=== PATIENT | female | born 1985 | race Caucasian/White ===

== ENCOUNTER 2019-04-09 22:04 | Emergency (ER) | payer OTHER ==
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
[2019-04-09 22:12] VITALS: O2SAT 98
[2019-04-09] MEDS: XYLOCAINE 1%/Epi 1:100000 MDV 20 ML IJ ONE (22:29)
[2019-04-09] MEDS ORDERED: Norco 10/325 MG Tablet ONE (22:30)
[2019-04-09] MEDS ORDERED: TENIVAC VIAL IM ONE (22:30)
[2019-04-09] MEDS ORDERED: XYLOCAINE 1%/Epi 1:100000 MDV 20 ML ONE (22:30)
[2019-04-09] MEDS: TENIVAC VIAL IM ONE (22:31)
[2019-04-09] MEDS: Norco 10/325 MG Tablet PO ONE (22:32)
[2019-04-10 00:02] VITALS: BP 110/78; PULSE 98
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
== END 2019-04-10 00:01 | disposition home or self-care (01) ==
LOC: ED 22:04
DX: S01.81XA Laceration without foreign body of other part of head, initial encounter (principal); S00.83XA Contusion of other part of head, initial encounter; Y04.0XXA Assault by unarmed brawl or fight, initial encounter
CPT/HCPCS: 12013; 70450; 70486; 71046; 72125; 90471; 90714; 99284; A9270-GY

== ENCOUNTER 2019-04-20 11:13 | Emergency (ER) | payer OTHER ==
--- NOTE | 2019-04-20 11:24 | ERPHSYRPT ---
- History of Present Illness Time Seen by Provider: 04/20/19 11:22 Source: patient Exam Limitations: no limitations Physician History: came for suture removal on face Allergies/Adverse Reactions: No Known Drug Allergies Allergy (Verified 04/20/19 11:18) Home Medications: Prazosin HCl [Minipress] 2 mg PO HS 04/09/19 [History] Sertraline HCl 50 mg [Zoloft 50 mg Tablet] 50 mg PO DAILY 04/09/19 [History] Sertraline HCl [Zoloft] 100 mg PO DAILY 04/09/19 [History] Hx Tetanus, Diphtheria Vaccination/Date Given: Yes Hx Influenza Vaccination/Date Given: No Hx Pneumococcal Vaccination/Date Given: No - Review of Systems Constitutional: No Symptoms Eyes: No Symptoms Ears, Nose, & Throat: No Symptoms Respiratory: No Symptoms Cardiac: No Symptoms Abdominal/Gastrointestinal: No Symptoms Genitourinary Symptoms: No Symptoms Musculoskeletal: No Symptoms - Past Medical History Pertinent Past Medical History: Yes Neurological History: No Pertinent History ENT History: No Pertinent History Cardiac History: No Pertinent History Respiratory History: Asthma Endocrine Medical History: No Pertinent History Musculoskeletal History: Other GI Medical History: No Pertinent History History: No Pertinent History Psycho-Social History: No Pertinent History Female Reproductive Disorders: No Pertinent History Other Medical History: DVT - Past Surgical History Past Surgical History: Yes Neuro Surgical History: No Pertinent History Cardiac: No Pertinent History Respiratory: No Pertinent History Gastrointestinal: Cholecystectomy Genitourinary: No Pertinent History Musculoskeletal: Orthopedic Surgery Female Surgical History: No Pertinent History, Section Other Surgical History: MUSCLE ET TENDON REPAIRS. D&C - Social History Smoking Status: Current every day smoker How long have you smoked: 10 Exposure to second hand smoke: Yes Drug Use: marijuana Patient Lives Alone: Yes - Physical Exam General Appearance: no apparent distress Eye Exam: PERRL/EOMI Ears, Nose, Throat Exam: normal ENT inspection, other (left fascial sutures has healed well) Neck Exam: normal inspection - Course Nursing assessment & vital signs reviewed: Yes - Progress Progress: improved Progress Note: 04/20/19 11:23 sutures removed without any complications. no bleeding Counseled pt/family regarding: need for follow-up - Departure Departure Disposition: Home Clinical Impression: Visit for suture removal Condition: Stable Critical Care Time: No Referrals: DOCTOR,NO FAMILY [Primary Care Provider] -
[2019-04-20 11:26] VITALS: BP 117/87; PULSE 99; O2SAT 95
== END 2019-04-20 11:39 | disposition home or self-care (01) ==
LOC: ED 11:13
DX: Z48.02 Encounter for removal of sutures (principal)
CPT/HCPCS: 99283; G0463

== ENCOUNTER 2019-07-19 12:37 | Emergency (ER) | payer OTHER ==
[2019-07-19] MEDS ORDERED: Sodium Chloride 0.9% 1000 ML 1,000 ML IV STA (13:09)
[2019-07-19] MEDS ORDERED: Inapsine 5 MG/2 ML IV ONE (13:09)
[2019-07-19] MEDS ORDERED: TORAdol 30 mg Injection IV ONE (13:09)
[2019-07-19] MEDS ORDERED: BENADRYL 50 MG/ML IV ONE (13:09)
--- NOTE | 2019-07-19 13:15 | ERPHSYRPT ---
- History of Present Illness Time Seen by Provider: 07/19/19 12:39 Historian: patient Exam Limitations: no limitations Patient Subjective Stated Complaint: pt here for urinary frequency, lower abd pain ,burning with urination for 2 days, she states she has been drinking 3 energy drinks a day and thinks that is the proble,no n/v.d, abd to eat today Triage Nursing Assessment: pt alert, resp easy, skin w/d/p. abd soft, moves all ext well, urin clear yellow, Physician History: Location: lower abdomen Quality: sharp Radiation: none Severity: moderate Duration: 2-3 days Timing: gradual Modifying factors/associated signs and symptoms: non-tried Timing/Duration: today Activities at Onset: activity Quality: aching, burning Abdominal Pain Onset Location: periumbilical, generalized abdomen Pain Radiation: no radiation Severity of Pain-Max: none Severity of Pain-Current: none Modifying Factors: Improves With: nothing, lying down Associated Symptoms: denies symptoms Previous symptoms: no prior history Allergies/Adverse Reactions: No Known Drug Allergies Allergy (Verified 07/19/19 12:53) Home Medications: Prazosin HCl [Minipress] 2 mg PO HS 04/09/19 [History] Sertraline HCl 50 mg [Zoloft 50 mg Tablet] 50 mg PO DAILY 04/09/19 [History] Sertraline HCl [Zoloft] 100 mg PO DAILY 04/09/19 [History] Hx Tetanus, Diphtheria Vaccination/Date Given: Yes Hx Influenza Vaccination/Date Given: No Hx Pneumococcal Vaccination/Date Given: No Immunizations Up to Date: Yes Travel Risk - International Travel Have you traveled outside of the country in past 3 weeks: No - Coronavirus Screening Are you exhibiting any of the following symptoms?: No Close contact with a COVID-19 positive Pt in past 14-21 Days: No - Review of Systems Constitutional: No Fever, No Chills Eyes: No Symptoms Ears, Nose, & Throat: No Symptoms Respiratory: No Cough, No Dyspnea Cardiac: No Chest Pain, No Edema, No Syncope Abdominal/Gastrointestinal: Abdominal Pain, Nausea, No Vomiting, No Diarrhea Genitourinary Symptoms: No Dysuria Musculoskeletal: No Back Pain, No Neck Pain Skin: No Rash Neurological: No Dizziness, No Focal Weakness, No Sensory Changes Psychological: No Symptoms Endocrine: No Symptoms All Other Systems: Reviewed and Negative - Past Medical History Pertinent Past Medical History: Yes Neurological History: No Pertinent History ENT History: No Pertinent History Cardiac History: No Pertinent History Respiratory History: Asthma Endocrine Medical History: No Pertinent History Musculoskeletal History: Other GI Medical History: No Pertinent History History: No Pertinent History Psycho-Social History: Depression, Other Female Reproductive Disorders: No Pertinent History Other Medical History: ptsd - Past Surgical History Past Surgical History: Yes Neuro Surgical History: No Pertinent History Cardiac: No Pertinent History Respiratory: No Pertinent History Gastrointestinal: Cholecystectomy Genitourinary: No Pertinent History Musculoskeletal: Orthopedic Surgery Female Surgical History: Tubal Ligation Other Surgical History: MUSCLE ET TENDON REPAIRS. D&C - Social History Smoking Status: Current every day smoker How long have you smoked: 10 Exposure to second hand smoke: Yes Drug Use: marijuana Patient Lives Alone: No - Female History Hx Last Menstrual Period: 2 weeks ago Hx Now: No - Nursing Vital Signs Nursing Vital Signs: Initial Vital Signs Temperature 98.1 F 07/19/19 12:53 Pain Scale Pain Intensity 3 - Physical Exam General Appearance: no apparent distress, alert Eye Exam: PERRL/EOMI, eyes nml inspection Ears, Nose, Throat Exam: normal ENT inspection, pharynx normal, moist mucous membranes Neck Exam: normal inspection, non-tender, supple, full range of motion Respiratory Exam: normal breath sounds, lungs clear, No respiratory distress Cardiovascular Exam: regular rate/rhythm, normal heart sounds Gastrointestinal/Abdomen Exam: soft, tenderness (Mild lower abdominal tenderness to palpation without rebound or guarding), No mass Back Exam: normal inspection, normal range of motion, No CVA tenderness, No vertebral tenderness Extremity Exam: normal inspection, normal range of motion, pelvis stable Neurologic Exam: alert, oriented x 3, cooperative, normal mood/affect, nml cerebellar function, sensation nml, No motor deficits Skin Exam: normal color, warm, dry SpO2: 98 Ordered Tests: Active Orders 24 hr Category Date Time Status IV Insertion STAT Care 07/19/19 13:09 Active CHEST 2 VIEWS (PA AND LAT) Stat Exams 07/19/19 13:09 Completed CBC W DIFF Stat Lab 07/19/19 13:09 Completed CMP Stat Lab 07/19/19 13:09 Completed HCG,QUALITATIVE URINE Stat Lab 07/19/19 13:17 Completed LIPASE Stat Lab 07/19/19 13:09 Completed UA W/RFX UR CULTURE Stat Lab 07/19/19 13:16 Completed Medication Summary Discontinued Medications Generic Name Dose Route Start Last Admin Trade Name [place] PRN Reason Stop Dose Admin Diphenhydramine HCl 25 mg 07/19/19 13:09 07/19/19 13:24 Benadryl 50 Mg/Ml IV 07/19/19 13:10 25 mg STAT ONE Administration Diphenhydramine HCl Confirm 07/19/19 13:22 Benadryl 50 Mg/Ml Administered 07/19/19 13:23 Dose 50 mg .ROUTE .STK-MED ONE Droperidol 1.25 mg 07/19/19 13:09 07/19/19 13:23 Inapsine 5 Mg/2 Ml IV 07/19/19 13:10 1.25 mg STAT ONE Administration Droperidol Confirm 07/19/19 13:22 Inapsine 5 Mg/2 Ml Administered 07/19/19 13:23 Dose 5 mg .ROUTE .STK-MED ONE Sodium Chloride 1,000 mls @ 999 mls/hr 07/19/19 13:09 07/19/19 13:24 Sodium Chloride 0.9% 1000 Ml IV 07/19/19 14:09 999 mls/hr .Q1H1M STA Administration Sodium Chloride Confirm 07/19/19 13:22 Sodium Chloride 0.9% 1000 Ml Administered 07/19/19 13:23 Dose 1,000 mls @ ud .ROUTE .STK-MED ONE Ketorolac Tromethamine 30 mg 07/19/19 13:09 07/19/19 13:24 Toradol 30 Mg Injection IV 07/19/19 13:10 30 mg STAT ONE Administration Ketorolac Tromethamine Confirm 07/19/19 13:22 Toradol 30 Mg Injection Administered 07/19/19 13:23 Dose 30 mg .ROUTE .STK-MED ONE Lab/Rad Data: Laboratory Result Diagrams 07/19/19 13:09 07/19/19 13:09 Laboratory Results 07/19/19 07/19/19 07/19/19 Range/Units 13:17 13:16 13:09 WBC (4.0-10.5) K/mm3 RBC (4.1-5.4) M/mm3 Hgb (12.0-16.0) gm/dl Hct (35-47) % MCV (78-100) fl MCH (26-32) pg MCHC (32-36) g/dl RDW (11.5-14.0) % Plt Count (150-450) K/mm3 MPV (7.5-11.0) fl Gran % (36.0-66.0) % Eos # (Auto) (0-0.5) Absolute Lymphs (auto) (1.0-4.6) Absolute Monos (auto) (0.0-1.3) Lymphocytes % (24.0-44.0) % Monocytes % (0.0-12.0) % Eosinophils % (0.00-5.0) % Basophils % (0.0-0.4) % Absolute Granulocytes (1.4-6.9) Basophils # (0-0.4) Sodium 141 (137-145) mmol/L Potassium 3.8 (3.5-5.1) mmol/L Chloride 107 (98-107) mmol/L Carbon Dioxide 27 (22-30) mmol/L Anion Gap 10.5 (5-15) MEQ/L BUN 8 (7-17) mg/dL Creatinine 0.39 L (0.52-1.04) mg/dL Estimated GFR > 60.0 ML/MIN Glucose 106 (74-106) mg/dL Calcium 9.0 (8.4-10.2) mg/dL Total Bilirubin 0.40 (0.2-1.3) mg/dL AST 23 (14-36) U/L ALT 17 (0-35) U/L Alkaline Phosphatase 85 (38-126) U/L Serum Total Protein 7.6 (6.3-8.2) g/dL Albumin 4.0 (3.5-5.0) g/dL Lipase 30 (23-300) U/L Urine Color YELLOW (YELLOW) Urine Appearance SLIGHTLY CLOUDY (CLEAR) Urine pH 5.0 (5-6) Ur Specific [place] 1.024 (1.005-1.025) Urine Protein NEGATIVE (Negative) Urine Ketones NEGATIVE (NEGATIVE) Urine Blood NEGATIVE (0-5) Elvin/ul Urine Nitrite NEGATIVE (NEGATIVE) Urine Bilirubin NEGATIVE (NEGATIVE) Urine Urobilinogen 2 (0-1) mg/dL Ur Leukocyte Esterase NEGATIVE (NEGATIVE) Urine WBC (Auto) NONE (0-5) /HPF Urine RBC (Auto) NONE (0-2) /HPF U Epithel Cells (Auto) RARE (FEW) /HPF Urine Bacteria (Auto) NONE (NEGATIVE) /HPF Urine Mucus (Auto) MANY (NEGATIVE) /HPF Urine Culture Reflexed NO (NO) Urine Glucose NEGATIVE (NEGATIVE) mg/dL Urine HCG, Qual NEGATIVE (Negative) 07/19/19 Range/Units 13:09 WBC 9.6 (4.0-10.5) K/mm3 RBC 4.43 (4.1-5.4) M/mm3 Hgb 13.1 (12.0-16.0) gm/dl Hct 41.0 (35-47) % MCV 92.6 (78-100) fl MCH 29.6 (26-32) pg MCHC 32.0 (32-36) g/dl RDW 15.3 H (11.5-14.0) % Plt Count 221 (150-450) K/mm3 MPV 12.9 H (7.5-11.0) fl Gran % 69.3 H (36.0-66.0) % Eos # (Auto) 0.30 (0-0.5) Absolute Lymphs (auto) 2.06 (1.0-4.6) Absolute Monos (auto) 0.55 (0.0-1.3) Lymphocytes % 21.6 L (24.0-44.0) % Monocytes % 5.8 (0.0-12.0) % Eosinophils % 3.1 (0.00-5.0) % Basophils % 0.2 (0.0-0.4) % Absolute Granulocytes 6.62 (1.4-6.9) Basophils # 0.02 (0-0.4) Sodium (137-145) mmol/L Potassium (3.5-5.1) mmol/L Chloride (98-107) mmol/L Carbon Dioxide (22-30) mmol/L Anion Gap (5-15) MEQ/L BUN (7-17) mg/dL Creatinine (0.52-1.04) mg/dL Estimated GFR ML/MIN Glucose (74-106) mg/dL Calcium (8.4-10.2) mg/dL Total Bilirubin (0.2-1.3) mg/dL AST (14-36) U/L ALT (0-35) U/L Alkaline Phosphatase (38-126) U/L Serum Total Protein (6.3-8.2) g/dL Albumin (3.5-5.0) g/dL Lipase (23-300) U/L Urine Color (YELLOW) Urine Appearance (CLEAR) Urine pH (5-6) Ur Specific [place] (1.005-1.025) Urine Protein (Negative) Urine Ketones (NEGATIVE) Urine Blood (0-5) Elvin/ul Urine Nitrite (NEGATIVE) Urine Bilirubin (NEGATIVE) Urine Urobilinogen (0-1) mg/dL Ur Leukocyte Esterase (NEGATIVE) Urine WBC (Auto) (0-5) /HPF Urine RBC (Auto) (0-2) /HPF U Epithel Cells (Auto) (FEW) /HPF Urine Bacteria (Auto) (NEGATIVE) /HPF Urine Mucus (Auto) (NEGATIVE) /HPF Urine Culture Reflexed (NO) Urine Glucose (NEGATIVE) mg/dL Urine HCG, Qual (Negative) - Progress Progress: improved Progress Note: 07/19/19 13:14 differential diagnosis includes kidney stone, compression fracture, infection, UTI, triple AAA - basic labs including: CBC, lipase, CMP, UA - insert IV for fluids, pain meds, nausea control - consider imaging: CT ab/pelvis 07/19/19 14:33 Labs and pain improved. Adenopathy patient will benefit from a CT scan today. Patient overall feels better. Will discharge patient home. Close follow-up with PCP. Return here for new or changing symptoms. Counseled pt/family regarding: lab results, diagnosis, need for follow-up, smoking cessation - Departure Departure Disposition: Home Clinical Impression: Abdominal pain Condition: Stable Critical Care Time: No Referrals: DOCTOR,NO FAMILY [Primary Care Provider] - TAWANA LOBO MD [ACTIVE STAFF] - Instructions: Acute Abdomen (Belly Pain), Adult (DC)
[2019-07-19] MEDS ORDERED: Sodium Chloride 0.9% 1000 ML 1,000 ML ONE (13:22)
[2019-07-19] MEDS ORDERED: TORAdol 30 mg Injection ONE (13:22)
[2019-07-19] MEDS ORDERED: BENADRYL 50 MG/ML ONE (13:22)
[2019-07-19] MEDS ORDERED: Inapsine 5 MG/2 ML ONE (13:22)
--- NOTE | 2019-07-19 13:39 | XRAY ---
Exam: Two-view chest from 07/19/2019. Comparison: Two-view chest from 04/09/2019. Indication: Upper abdominal pain. Findings: Upright PA and lateral chest films are submitted for evaluation. The patient is noted to be large. The heart size and contour are normal. The yee and mediastinal structures appear unremarkable. There has been adequate inflation of the lungs. No air space infiltrates, vascular congestion, pneumothorax, or pleural fluid is seen. No acute osseous process is seen. Surgical clips are seen within the upper abdomen, likely due to prior cholecystectomy. Impression: 1. No acute cardiopulmonary disease is seen, no change from 04/09/2019.
[2019-07-19 13:46] LABS: Absolute Neutrophil Ct (ANC) 6.62 (1.4-6.9); BASOPHIL % 0.2 % (0.0-0.4); Basophil (Absolute #) 0.02 (0-0.4); Eosinophil % 3.1 % (0.00-5.0); Hemoglobin 13.1 gm/dl (12.0-16.0); Lymphocyte (Absolute #) 2.06 (1.0-4.6); Lymphocytes % 21.6 % (24.0-44.0); Mean Cell Volume 92.6 fl (78-100); Mean Corpuscular Hemoglobin 29.6 pg (26-32); Mean Platelet Volume 12.9 fl (7.5-11.0); Monocyte (Absolute #) 0.55 (0.0-1.3); Monocytes % 5.8 % (0.0-12.0); Neutrophil % 69.3 % (36.0-66.0); Platelet Count 221 K/mm3 (150-450); Red Blood Count 4.43 M/mm3 (4.1-5.4); Red Cell Distribution Width 15.3 % (11.5-14.0); White Blood Count 9.6 K/mm3 (4.0-10.5)
[2019-07-19 13:52] LABS: Appearance SLIGHTLY CLOUDY (CLEAR); Bilirubin NEGATIVE (NEGATIVE); Blood NEGATIVE Ery/ul (0-5); Epithelial Cells RARE /HPF (FEW); Glucose NEGATIVE (NEGATIVE); Ketones NEGATIVE (NEGATIVE); Leukocyte Esterase NEGATIVE (NEGATIVE); Mucus MANY /HPF (NEGATIVE); Nitrite NEGATIVE (NEGATIVE); Protein,Urine Dip NEGATIVE (Negative); Specific Gravity 1.024 (1.005-1.025); Urobilinogen 2 mg/dL (0-1)
[2019-07-19 14:05] LABS: ALKALINE PHOSPHATASE 85 U/L (38-126); ANION GAP 10.5 MEQ/L (5-15); BLOOD UREA NITROGEN 8 mg/dL (7-17); CHLORIDE 107 mmol/L (98-107); Carbon Dioxide 27 mmol/L (22-30); Creatinine 1 0.39 mg/dL (0.52-1.04); Glucose 106 mg/dL (74-106); LIPASE 30 U/L (23-300); Potassium 3.8 mmol/L (3.5-5.1); SGOT/AST 23 U/L (14-36); SGPT/ALT 17 U/L (0-35); SODIUM 141 mmol/L (137-145); Total Protein 7.6 g/dL (6.3-8.2)
[2019-07-19 14:34] VITALS: BP 153/110; PULSE 76; O2SAT 98
== END 2019-07-19 14:34 | disposition home or self-care (01) ==
LOC: ED 12:37
DX: R10.9 Unspecified abdominal pain (principal); Z72.0 Tobacco use; R30.9 Painful micturition, unspecified; R35.0 Frequency of micturition
CPT/HCPCS: 36000; 36415; 71046; 80053; 81001; 83690; 84703; 85025; 96360; 96374; 96375; 99284; J1200; J1885